=== PATIENT | male | born 1970 | race Hispanic/Latino ===

== ENCOUNTER 2019-09-30 19:44 | Emergency (ER) | payer SELFPAY ==
[2019-09-30] MEDS ORDERED: Lidocaine 1% PF 5 ML VIAL ONE (20:06)
[2019-09-30] MEDS ORDERED: Sulfameth/Trimethoprim DS 800-160mg TAB ONE (20:48)
[2019-09-30] MEDS ORDERED: Cephalexin 250 MG CAP ONE (20:48)
== END 2019-09-30 20:41 | disposition home or self-care (01) ==
LOC: ERS 19:44
DX: L02.31 Cutaneous abscess of buttock (principal); L03.317 Cellulitis of buttock
CPT/HCPCS: 10060; J2001